=== PATIENT | female | born 1950 | race Caucasian/White ===

== ENCOUNTER 2021-12-03 12:38 | Observation (INO) | payer MEDICARE, OTHER ==
[~2021-12-03] VITALS: Ht 162.6 cm; Wt 72.6 kg
[~2021-12-03 12:38] MED LIST: OMNICEF 300 MG300 MG PO; TAMIFLU 75 MG C75 MG PO
[2021-12-03 13:17] LABS: HEMOGLOBIN 10.4 gm/dl (12.3-15.3); RED BLOOD COUNT 3.4 M/UL (4.00-5.10); WHITE BLOOD COUNT 6.8 K/UL (4.5-11.0)
[2021-12-03 13:55] LABS: BUN/CREATININE RATIO 15 (0-10)
[2021-12-03] MEDS ORDERED: ALBUTEROL2.5 MG/3 M INH (15:48)
[2021-12-03] MEDS ORDERED: FEROSUL325 MG PO (15:49)
[2021-12-03] MEDS ORDERED: SIMVASTATIN10 MG PO (15:49)
[2021-12-03] MEDS ORDERED: OMNICEF 300 MG300 MG PO (16:12)
[2021-12-04] MEDS ORDERED: PROVENTIL HFA6.7 GM INH (14:43)
[2021-12-04] MEDS ORDERED: MAPAP500 MG PO (14:44)
== END 2021-12-03 16:26 | disposition left against medical advice (07) ==
LOC: ER1 12:38 → CDU 14:52
PROVIDERS: Emergency Medicine; ADMIT Internal Medicine
DX: N30.00 Acute cystitis without hematuria (principal); N17.9 Acute kidney failure, unspecified; E86.0 Dehydration; E11.9 Type 2 diabetes mellitus without complications; J45.909 Unspecified asthma, uncomplicated; E78.5 Hyperlipidemia, unspecified; Z53.29 Procedure and treatment not carried out because of patient's decision for other reasons; Z66 Do not resuscitate
CPT/HCPCS: 71045; 80053; 81001; 82550; 82553; 83605; 83880; 84439; 84443; 84484; 85025; 85379; 87040; 87077; 87086; 87186; 93005; 99285; G0378; J0696; U0002

== ENCOUNTER 2021-12-04 08:50 | Observation (INO) | payer MEDICARE, MEDICAID ==
[~2021-12-04] VITALS: Ht 162.6 cm; Wt 78.0 kg
[~2021-12-04 08:50] MED LIST changes: +ALBUTEROL2.5 MG/3 M INH; +FEROSUL325 MG PO; +SIMVASTATIN10 MG PO
[2021-12-04 11:02] LABS: HEMOGLOBIN 10.7 gm/dl (12.3-15.3); RED BLOOD COUNT 3.5 M/UL (4.00-5.10); WHITE BLOOD COUNT 8.1 K/UL (4.5-11.0)
[2021-12-04] MEDS ORDERED: PROVENTIL HFA6.7 GM INH (14:43)
[2021-12-04] MEDS ORDERED: MAPAP500 MG PO (14:44)
[2021-12-05 02:57] LABS: RED BLOOD COUNT 3.26 M/UL (4.00-5.10); WHITE BLOOD COUNT 7.2 K/UL (4.5-11.0)
[2021-12-06 03:25] LABS: HEMOGLOBIN 9.9 gm/dl (12.3-15.3); RED BLOOD COUNT 3.21 M/UL (4.00-5.10); WHITE BLOOD COUNT 7.2 K/UL (4.5-11.0)
[2021-12-07 02:35] LABS: HEMOGLOBIN 9.9 gm/dl (12.3-15.3); RED BLOOD COUNT 3.24 M/UL (4.00-5.10); WHITE BLOOD COUNT 7.5 K/UL (4.5-11.0)
[2021-12-07] MEDS ORDERED: CEFUROXIME250 MG PO (15:09)
[2021-12-07] MEDS ORDERED: SIMVASTATIN10 MG PO (15:35)
[2021-12-07] MEDS ORDERED: PROVENTIL HFA6.7 GM INH (15:35)
--- NOTE | 2021-12-07 16:05 | NUR ---
[facility] STATES THEY ARE UNABLE TO TAKE REPORT AT THIS TIME,
== END 2021-12-07 17:03 | disposition home health service (06) ==
LOC: ER1 08:50 → M/S 11:04 → CDU 11:04 → M/S 12:39
PROVIDERS: Emergency Medicine; Internal Medicine; Physician Assistant; ADMIT Internal Medicine
DX: N30.00 Acute cystitis without hematuria (principal); N17.9 Acute kidney failure, unspecified; I12.9 Hypertensive chronic kidney disease with stage 1 through stage 4 chronic kidney disease, or unspecified chronic kidney disease; E11.22 Type 2 diabetes mellitus with diabetic chronic kidney disease; N18.30 Chronic kidney disease, stage 3 unspecified; E86.0 Dehydration; E78.5 Hyperlipidemia, unspecified; J45.909 Unspecified asthma, uncomplicated; D64.9 Anemia, unspecified; Z66 Do not resuscitate
CPT/HCPCS: 36415; 70450; 71045; 80048; 80053; 81001; 82550; 82553; 82962; 83605; 83735; 84484; 85025; 87040; 87086; 93005; 94640; 94664; 94760; 97110-GP-CQ; 97116-GP-CQ; 97161; 97166; 97535; G0378; J0696

== ENCOUNTER 2021-12-23 19:25 | Emergency (ER) | payer MEDICARE ==
[~2021-12-23 19:25] MED LIST changes: +CEFUROXIME250 MG PO; +MAPAP500 MG PO; +PROVENTIL HFA6.7 GM INH
== END 2021-12-23 22:00 | disposition left against medical advice (07) ==
LOC: ER1 19:25
DX: R42 Dizziness and giddiness (principal); J45.909 Unspecified asthma, uncomplicated; E11.9 Type 2 diabetes mellitus without complications
CPT/HCPCS: 93005; 99281

== ENCOUNTER 2021-12-25 11:19 | Emergency (ER) | payer MEDICARE, OTHER | END 2021-12-25 11:55 | disposition left against medical advice (07) | LOC: ER1 11:19 | DX: Z53.21 Procedure and treatment not carried out due to patient leaving prior to being seen by health care provider (principal) ==

== ENCOUNTER 2022-01-01 12:43 | Emergency (ER) | payer MEDICARE, OTHER | END 2022-01-01 14:46 | disposition left against medical advice (07) | LOC: ER1 12:43 | DX: R53.1 Weakness (principal); E66.9 Obesity, unspecified; E11.22 Type 2 diabetes mellitus with diabetic chronic kidney disease; N18.9 Chronic kidney disease, unspecified | CPT/HCPCS: 93005; 99281 ==